=== PATIENT | female | born 1965 | race American Indian/Alaskan Native ===

== ENCOUNTER 2016-09-29 15:14 | Emergency (ER) | payer OTHER ==
[2016-09-29 16:22] LABS: Basophils % (Auto) 0.4 % (0.0-1.8); Eosinophils % (Auto) 0.4 % (0.0-4.3); Hematocrit 36.1 % (30.3-42.9); Hemoglobin 11.6 gm/dl (10.1-14.3); Mean Corpuscular HGB Conc 32 % (30-34); Red Cell Distribution Width 17.6 % (13.2-15.2); White Blood Count 6.4 K/mm3 (4.5-11.0)
[2016-09-29 16:33] LABS: Mean Corpuscular Hemoglobin 22 pg (28-32); Mean Corpuscular Volume 67 fl (79-97); Platelet Count 176 K/mm3 (140-440)
[2016-09-29 16:36] LABS: Anion Gap 20 mmol/L; BUN/Creatinine Ratio 17.77; Blood Urea Nitrogen 16 mg/dL (7-17); Calcium 9.1 mg/dL (8.4-10.2); Carbon Dioxide 25 mmol/L (22-30); Chloride 97.5 mmol/L (98-107); Glucose 163 mg/dL (65-100); Potassium 3.8 mmol/L (3.6-5.0); Sodium 139 mmol/L (137-145)
[2016-09-29 18:35] VITALS: BP 161/82
--- NOTE | 2016-09-29 18:57 | Emergency Department Report ---
ED Palpitations HPI - General Chief Complaint: Arrhythmia/Palpitations Stated Complaint: CHEST PAIN/DIZZINESS Time Seen by Provider: 09/29/16 18:33 Source: patient, family Mode of arrival: Ambulatory Limitations: No Limitations - History of Present Illness Initial Comments: Patient here reports that she is having palpitations, dizziness, chest pain, nausea and headache that started around 2 PM after she took [id number] sinus medication. She reports symptoms started after taking medication for her sinuses. She reports that she has sinus problems for the last 2 weeks with nasal congestion facial pressure. She reports headache 6 out of 10 to her for head and chest discomfort at 6 out of 10 that started around 2 PM. She denies any history of heart disease or chest pain. chest pain started when she took the sinus medication. She reports that she has a history of diabetes high blood pressure and neck fracture for which she is on gabapentin, metformin and Cozaar. She denies any fever or chills or shortness of breath. Denies any nausea vomiting. MD Complaint: palpitations -: This afternoon Context: other (she took [id number] sinus medication.) Associated Symptoms: chest pain, diaphoresis. denies: shortness of breath, syncope, near-syncope, nausea/vomiting, anxiety, cough, parasthesias, feeling of impending doom, muscle cramps - Related Data Previous Rx's Medication Instructions Recorded Last Taken Type Azithromycin [Zithromax Z-GLADYS] 250 mg PO DAILY #6 tab 09/29/16 Unknown Rx Fluticasone [Flonase] 1 spray NS QDAY #1 bottle 09/29/16 Unknown Rx Allergies Allergy/AdvReac Type Severity Reaction Status Date / Time No Known Allergies Allergy Unverified 09/29/16 15:42 ED Review of Systems ROS: Stated complaint: CHEST PAIN/DIZZINESS Other details as noted in HPI Comment: All other systems reviewed and negative Constitutional: denies: chills, fever Eyes: denies: eye pain, eye discharge ENT: congestion, other (sinus pressure). denies: ear pain, throat pain Respiratory: no symptoms reported Cardiovascular: chest pain, palpitations. denies: edema, syncope Gastrointestinal: denies: abdominal pain, nausea, vomiting, diarrhea Musculoskeletal: denies: back pain, arthralgia Skin: denies: rash Neurological: headache. denies: weakness, numbness, paresthesias, confusion, abnormal gait, vertigo ED Past Medical Hx - Past Medical History Previous Medical History?: Yes Hx Diabetes: Yes (type 2) - Surgical History Past Surgical History?: Yes Additional Surgical History: spinal - Family History Family history: diabetes, hypertension - Social History Smoking Status: Never Smoker Substance Use Type: Alcohol - Medications Home Medications: Home Medications Medication Instructions Recorded Confirmed Last Taken Type Azithromycin [Zithromax Z-GLADYS] 250 mg PO DAILY #6 tab 09/29/16 Unknown Rx Fluticasone [Flonase] 1 spray NS QDAY #1 bottle 09/29/16 Unknown Rx ED Physical Exam - General Limitations: No Limitations General appearance: alert, in no apparent distress - Head Head exam: Present: atraumatic, normocephalic, normal inspection - Expanded Head Exam Expanded Head exam: Absent: laceration, abrasion, contusion, hematoma, racoon eyes, clemons's sign, general tenderness, tenderness of temporal artery, CSF rhinorrhea , CSF otorrhea - Eye Eye exam: Present: normal appearance, PERRL, EOMI. Absent: periorbital swelling , periorbital tenderness Pupils: Present: normal accommodation - ENT ENT exam: Present: normal orophraynx, mucous membranes moist, normal external ear exam, other (bilateral nasal mucosa congested with erythema. Positive frontal). Absent: TM's normal bilaterally (bilateral TMs congested without erythema) - Neck Neck exam: Present: normal inspection, full ROM. Absent: tenderness, meningismus, lymphadenopathy - Respiratory Respiratory exam: Present: normal lung sounds bilaterally. Absent: respiratory distress, wheezes, rales, rhonchi, stridor, chest wall tenderness, accessory muscle use - Cardiovascular Cardiovascular Exam: Present: regular rate, normal rhythm, normal heart sounds. Absent: systolic murmur, diastolic murmur - Expanded Cardiovascular Exam Expanded Peripheral pulses: 2+: Radial (R), Radial (L), Posterior Tibialis (R), Posterior Tibialis (L), Dorsalis Pedis (R), Dorsalis Pedis (L) - GI/Abdominal GI/Abdominal exam: Present: soft, normal bowel sounds. Absent: distended, tenderness, guarding, rebound, rigid - Extremities Exam Extremities exam: Present: normal inspection, full ROM, normal capillary refill. Absent: tenderness, pedal edema, joint swelling, calf tenderness - Back Exam Back exam: Present: normal inspection, full ROM. Absent: tenderness, CVA tenderness (R), CVA tenderness (L), muscle spasm, paraspinal tenderness, vertebral tenderness, rash noted - Neurological Exam Neurological exam: Present: alert, oriented X3, normal gait. Absent: motor sensory deficit, reflexes normal ED Course Vital Signs 09/29/16 09/29/16 15:42 18:33 Temperature 97.8 F 98 F Pulse Rate 79 84 Respiratory 20 16 Rate Blood Pressure 156/92 Blood Pressure 161/82 [Left] O2 Sat by Pulse 100 95 Oximetry - Reevaluation(s) Reevaluation #1: 09/29/16 21:27 Patient received Decadron 10 mg IV and bolused 1 L of normal saline in emergency room. ED Medical Decision Making - Lab Data Result diagrams: 09/29/16 16:03 09/29/16 16:03 Lab Results 09/29/16 09/29/16 09/29/16 Range/Units 15:52 16:03 16:03 WBC 6.4 (4.5-11.0) K/mm3 RBC 5.40 H (3.65-5.03) M/mm3 Hgb 11.6 (10.1-14.3) gm/dl Hct 36.1 (30.3-42.9) % MCV 67 L (79-97) fl MCH 22 L (28-32) pg MCHC 32 (30-34) % RDW 17.6 H (13.2-15.2) % Plt Count 176 (140-440) K/mm3 Lymph % (Auto) 14.0 (13.4-35.0) % [place] % (Auto) 5.2 (0.0-7.3) % Eos % (Auto) 0.4 (0.0-4.3) % Baso % (Auto) 0.4 (0.0-1.8) % Lymph # 0.9 L (1.2-5.4) K/mm3 [place] # 0.3 (0.0-0.8) K/mm3 Eos # 0.0 (0.0-0.4) K/mm3 Baso # 0.0 (0.0-0.1) K/mm3 Seg Neutrophils % 80.0 H (40.0-70.0) % Seg Neutrophils # 5.1 (1.8-7.7) K/mm3 Sodium 139 (137-145) mmol/L Potassium 3.8 (3.6-5.0) mmol/L Chloride 97.5 L (98-107) mmol/L Carbon Dioxide 25 (22-30) mmol/L Anion Gap 20 mmol/L BUN 16 (7-17) mg/dL Creatinine 0.9 (0.7-1.2) mg/dL Estimated GFR > 60 ml/min BUN/Creatinine Ratio 17.77 % Glucose 163 H (65-100) mg/dL POC Glucose 148 H (70-105) Calcium 9.1 (8.4-10.2) mg/dL Troponin T < 0.010 (0.00-0.029) ng/mL 09/29/16 Range/Units 18:39 WBC (4.5-11.0) K/mm3 RBC (3.65-5.03) M/mm3 Hgb (10.1-14.3) gm/dl Hct (30.3-42.9) % MCV (79-97) fl MCH (28-32) pg MCHC (30-34) % RDW (13.2-15.2) % Plt Count (140-440) K/mm3 Lymph % (Auto) (13.4-35.0) % [place] % (Auto) (0.0-7.3) % Eos % (Auto) (0.0-4.3) % Baso % (Auto) (0.0-1.8) % Lymph # (1.2-5.4) K/mm3 [place] # (0.0-0.8) K/mm3 Eos # (0.0-0.4) K/mm3 Baso # (0.0-0.1) K/mm3 Seg Neutrophils % (40.0-70.0) % Seg Neutrophils # (1.8-7.7) K/mm3 Sodium (137-145) mmol/L Potassium (3.6-5.0) mmol/L Chloride (98-107) mmol/L Carbon Dioxide (22-30) mmol/L Anion Gap mmol/L BUN (7-17) mg/dL Creatinine (0.7-1.2) mg/dL Estimated GFR ml/min BUN/Creatinine Ratio % Glucose (65-100) mg/dL POC Glucose (70-105) Calcium (8.4-10.2) mg/dL Troponin T < 0.010 (0.00-0.029) ng/mL - EKG Data EKG shows normal: sinus rhythm Rate: normal - EKG Data Interpretation: no acute changes - Medical Decision Making Laboratory data with Dr. Barrientos ED course: Patient received normal saline IV bolus 1 L and Decadron 10 mg IV. Upon reevaluation, patient states she was feeling better and she is ready to go home because her ride is here. I Discussed her lab results with her. Troponin negative. I expressed to her that she needs to refrain from taking over-the- counter pills except Claritin, Zyrtec or Mucinex. She voices understanding of diagnosis and treatment plan. Patient discharged home with prescription for Zithromax and Flonase. She can take plain Zyrtec [id number] if needed. Discharged home with her family in stable condition. Critical care attestation.: If time is entered above; I have spent that time in minutes in the direct care of this critically ill patient, excluding procedure time. ED Disposition Clinical Impression: Heart palpitations Sinusitis Qualifiers: Sinusitis location: unspecified location Chronicity: unspecified Qualified Code (s): J32.9 - Chronic sinusitis, unspecified Disposition: MEDICAL SCREENING EXAM-CONT Is pt being admited?: No Does the pt Need Aspirin: No Condition: Stable Instructions: Sinusitis (ED) Additional Instructions: Please from using [id number] antihistamine as this can cause her heart rate to go up. Take medication as prescribed. Primary care physician in 2 days Prescriptions: Azithromycin [Zithromax Z-GLADYS] 250 mg PO DAILY #6 tab Fluticasone [Flonase] 1 spray NS QDAY #1 bottle Referrals: CORINNE SUN [Other] - 10/01/16 Forms: Accompanied Note, Work/School Release Form(ED)
[2016-09-29] MEDS ORDERED: DECADRON IV ONE (18:59)
[2016-09-29] MEDS ORDERED: NACL 0.9% IV ONE (18:59)
[2016-09-29] MEDS ORDERED: NACL 0.9% 1000 ML 1,000 ML ONE (19:06)
== END 2016-09-29 20:39 | disposition home or self-care (01) ==
LOC: EDBD 15:14 → ED 15:14
DX: R00.2 Palpitations (principal); J32.9 Chronic sinusitis, unspecified; E11.9 Type 2 diabetes mellitus without complications
CPT/HCPCS: 36415; 80048; 82962; 84484; 85025; 93005; 93010; 96361; 96374; 99284; J1100; J7030